=== PATIENT | female | born 1965 | race Caucasian/White ===

== ENCOUNTER 2021-04-02 23:03 | Inpatient (IN) | payer MEDICARE, BC, OTHER ==
[~2021-04-02] VITALS: Ht 165.1 cm; Wt 56.2 kg
[2021-04-02] MEDS ORDERED: LITH600C PO (23:36)
[2021-04-02] MEDS ORDERED: QUET200T PO (23:36)
[2021-04-03 00:11] LABS: HEMATOCRIT 40.3 % (31.2-41.9); MEAN CORPUSCULAR HEMOGLOBIN 31.6 uug (24.7-32.8); MEAN CORPUSCULAR VOLUME 92.1 fL (75.5-95.3); PLATELET COUNT (AUTO) 308 K/uL (179-408)
--- NOTE | 2021-04-03 00:17 | NUR ---
Crisis nurse, Mariana isabel. Dr. Adair spoke with her.
[2021-04-03 00:25] LABS: ETHANOL < 3 MG/DL (0-0)
[2021-04-03 00:41] LABS: *BILIRUBIN,URIN NEGATIVE (NEGATIVE); *COLOR,URINE YELLOW (YELLOW); *KETONES,URINE NEGATIVE (NEGATIVE); *UROBILINOGEN,URINE 0.2 E.U./dl (NORMAL); LEUKOCYTE ESTERASE ,URINE TRACE (NEGATIVE); NITRITE, URINE NEGATIVE (NEGATIVE); PH,URINE 5.5 (5.0-8.0); UGLUCOSE NEGATIVE (NEGATIVE)
[2021-04-03 00:51] LABS: *AMPHETAMINE, URINE NEGATIVE (NEGATIVE); *CANNABINOID, URINE NEGATIVE (NEGATIVE); *COCCAINE, URINE NEGATIVE (NEGATIVE); *OPIATE, URINE NEGATIVE (NEGATIVE); *PHENCYCLIDINE SCREEN,URINE NEGATIVE (NEGATIVE)
[2021-04-03 00:59] LABS: *BLOOD, URINE TRACE (NEGATIVE); *CLARITY,URINE HAZY (CLEAR)
[2021-04-03 01:02] LABS: BACTERIA,URINE MANY /HPF (NONE SEEN); SQUAMOUS EPITHELIAL CELL,UR FEW /HPF (NONE SEEN)
[2021-04-03 01:03] LABS: *URINE HCG, QUAL NEGATIVE (NEGATIVE)
[2021-04-03 01:05] LABS: CARBON DIOXIDE 25 mmol/L (21-32); CHLORIDE 103 mmol/L (98-107); CREATININE 0.6 mg/dL (0.6-1.3); GLUCOSE 129 mg/dL (74-106); POTASSIUM 3.4 mmol/L (3.5-5.1); UREA NITROGEN, BLOOD 20 mg/dL (7-18)
[2021-04-03 01:11] LABS: ALANINE AMINOTRANSFERASE 101 U/L (14-59); ALKALINE PHOSPHATASE 116 U/L (50-136); ASPARTATE AMINOTRANSFERASE 63 U/L (15-37); BILIRUBIN,DIRECT 0.1 mg/dL (0.0-0.2); BILIRUBIN,TOTAL 0.3 mg/dL (0.2-1.0); TOTAL PROTEIN, SERUM 7.4 g/dL (6.4-8.2)
[2021-04-03 01:14] LABS: ACETAMINOPHEN < 2.0 ug/mL (10-30)
[2021-04-03 01:18] LABS: THYROID STIMULATING HORMONE 3.704 mIU/mL (0.358-3.740)
--- NOTE | 2021-04-03 01:19 | NUR ---
Crisis nurseMariana at bedside speaking with pt.
[2021-04-03] MEDS ORDERED: LORAZEPAM 0.5 MG TABLET PO ONE (01:30)
[2021-04-03] MEDS ORDERED: LORAZEPAM 1 MG TABLET ONE (01:40)
--- NOTE | 2021-04-03 06:11 | NUR ---
Called to the charge nurse of mental health. Inquired about giving report on this pt. She states it will have to be after 730 am as they have a general report of the unit at 7 am for the oncoming shift.
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
--- NOTE | 2021-04-03 08:28 | NUR ---
pt transfered to mhu in stable condition.
[2021-04-03] MEDS ORDERED: MAG HYDROX/AL HYDROX/SIMETH 30 ML LIQUID UDC PO PRN ×2 (08:45→10:30)
[2021-04-03] MEDS ORDERED: LORAZEPAM 0.5 MG TABLET PO PRN (08:45)
[2021-04-03] MEDS ORDERED: TEMAZEPAM 7.5 MG CAPSULE PO PRN (08:45)
[2021-04-03] MEDS ORDERED: ACETAMINOPHEN 325 MG TABLET PO PRN (08:45)
[2021-04-03] MEDS ORDERED: BLOOD SUGAR DIAGNOSTIC 1 EACH STRIP VI ONE ×4 (08:45→10:30)
[2021-04-03] MEDS ORDERED: MAGNESIUM HYDROXIDE 30 ML LIQUID UDC PO PRN ×2 (08:45→10:30)
[2021-04-03] MEDS ORDERED: LORAZEPAM 1 MG TABLET PO PRN (10:30)
[2021-04-03] MEDS ORDERED: POTASSIUM CHLORIDE 20 MEQ TAB.PRT.SR PO ONE (11:00)
[2021-04-03] MEDS: QUETIAPINE FUMARATE 100 MG TABLET PO SCH ×3 (11:08→21:49)
[2021-04-03] MEDS: LITHIUM CARBONATE 300 MG CAPSULE PO SCH ×2 (11:08→16:29)
--- NOTE | 2021-04-03 13:00 | NUR ---
report given to charge nurse on duty
[2021-04-03 16:00] VITALS: BP 90/48
[2021-04-03 20:00] VITALS: BP 96/56
--- NOTE | 2021-04-04 06:33 | NUR ---
GPS/NSG Patient first observed asleep in room. Attempted 2100 medication however patient was asleep. Attempted to serve her with advisement, she refused. Stated that the police had all her records. Patient also gave three names as she wanted me to note that there has been a conspiracy to murder her. Also, wanted to state that she did not feel safe across from her apartment. when I asked to clarify, if what she meant was that she was unsafe if she went to the apartment across from her she stated "No, if I went to the apartment across the street, I would be ". Patient has no insight to current situation. Patient is paranoid and tangental. alert and oriented to name, place, disheveled and unkempt. Plan for care in place. To be monitored Q15 minutes. Last observed awake pacing hallway. Small tremor in her hands noted, when i addressed it she said it was from the lithium.
[2021-04-04 07:21] LABS: HEMATOCRIT 41.5 % (31.2-41.9); MEAN CORPUSCULAR VOLUME 92.7 fL (75.5-95.3); PLATELET COUNT (AUTO) 317 K/uL (179-408)
[2021-04-04 07:30] VITALS: BP 103/46
[2021-04-04 07:37] LABS: BILIRUBIN,TOTAL 0.6 mg/dL (0.2-1.0); CREATININE 0.5 mg/dL (0.6-1.3); TOTAL PROTEIN, SERUM 7.3 g/dL (6.4-8.2)
[2021-04-04] MEDS: LITHIUM CARBONATE 300 MG CAPSULE PO SCH ×2 (08:49→17:10)
[2021-04-04] MEDS: QUETIAPINE FUMARATE 100 MG TABLET PO SCH ×2 (08:49→21:39)
[2021-04-04] MEDS: ENSURE ENLIVE (VAN) 240 ML LIQUID PO SCH ×3 (08:50→17:10)
--- NOTE | 2021-04-04 14:03 | NUR ---
SW Admit Source: Pt was voluntarily admitted to [facility] from home. Pt reports she lives alone in an apartment across the street but she will not return back. Pt reported to SW she would like the SW and MD to discharge her to a nursing facility upon discharge. Pt reported to not contact any family as pt is worried for her safety. Further contact will only involve the Public Guardian's Office ([phone]). ALEX will continue to work with pt, conservator, and MD to ensure a safe and proper discharge plan for the pt.
--- NOTE | 2021-04-04 14:03 | NUR ---
ALEX Initial Discharge Note: Pt was voluntarily admitted to [facility] from home. Pt reports she lives alone in an apartment across the [address] but she will not return back. Pt reported to SW she would like the SW and MD to discharge her to a nursing facility upon discharge. Pt reported to not contact any family as pt is worried for her safety. Further contact will only involve the Public Guardian's Office ([phone]). ALEX will continue to work with pt, conservator, and MD to ensure a safe and proper discharge plan for the pt.
--- NOTE | 2021-04-04 16:00 | NUR ---
Gps/Nascar Pit Crew Person- Observed standing still out side her door, appeared to be talking to somebody, when asked who she's talking to, claimed she's just waiting for the Advanced Manufacturing Associate to come out of her office. Encouraged to eat her meals in the dinning room.
[2021-04-04 17:35] VITALS: BP 126/75
[2021-04-04 20:00] VITALS: BP 105/49
[2021-04-04] MEDS: ATORVASTATIN 20 MG TABLET PO SCH ×2 (21:00→21:39)
[2021-04-04] MEDS: ZOLPIDEM 5 MG TABLET PO PRN (23:00)
[2021-04-05 07:45] VITALS: BP 94/50
[2021-04-05] MEDS: LITHIUM CARBONATE 300 MG CAPSULE PO SCH ×2 (08:23→16:14)
[2021-04-05] MEDS: ENSURE ENLIVE (VAN) 240 ML LIQUID PO SCH ×3 (08:23→16:22)
[2021-04-05] MEDS: QUETIAPINE FUMARATE 100 MG TABLET PO SCH ×2 (08:23→20:24)
--- NOTE | 2021-04-05 08:24 | NUR ---
The director of admissions technical inspector checked with the nurse before she came in to the hospital. The patient changed her mind and refused the scan. The patient told the tech that she was perfectly healthy and the exam was not necessary for her. DOUG Novoa noted.
--- NOTE | 2021-04-05 12:28 | NUR ---
Gps/Reserve Operator- Renny Gonzalez came in the front end developer javascript html css wants to visit, informed of the visiting hours as besides informed front end developer javascript html css /security unable to provide any informations , (No informations to be given to 3 people Nadegeyao Ragsdale-Sister, Renny Gonzalez (father), Richy Jasmine -(Cousin)
[2021-04-05 16:25] VITALS: BP 90/49
[2021-04-05 20:00] VITALS: BP 120/76
[2021-04-05] MEDS: ATORVASTATIN 20 MG TABLET PO SCH ×2 (20:26→20:31)
[2021-04-06 07:30] VITALS: BP 91/53
[2021-04-06] MEDS: QUETIAPINE FUMARATE 100 MG TABLET PO SCH ×2 (08:32→21:16)
[2021-04-06] MEDS: ENSURE ENLIVE (VAN) 240 ML LIQUID PO SCH ×3 (08:33→16:55)
[2021-04-06] MEDS: LITHIUM CARBONATE 300 MG CAPSULE PO SCH ×2 (08:33→16:55)
[2021-04-06 16:00] VITALS: BP 104/64
[2021-04-06 19:59] VITALS: BP 111/69
[2021-04-06] MEDS: ATORVASTATIN 20 MG TABLET PO SCH (21:16)
--- NOTE | 2021-04-07 05:27 | NUR ---
Received to care, pleasant upon approach, but appears distracted by internal stimuli, and exhibits rambling thoughts, at times. Refused lipitor at bedtime, but took her psychotropic medications. Requested to speak with patients rights advocate, so she was assisted with the telephone, and she left a message with patients rights office. She also left a message with her father, and eventually went to sleep, after coming to the desk, several times. She has slept around 4 hours. Observed to be talking to self, frequently, during room checks. Will continue to monitor closely.
[2021-04-07 07:51] VITALS: BP 94/46
[2021-04-07] MEDS: QUETIAPINE FUMARATE 100 MG TABLET PO SCH ×2 (08:23→20:09)
[2021-04-07] MEDS: LITHIUM CARBONATE 300 MG CAPSULE PO SCH ×2 (08:23→17:39)
[2021-04-07] MEDS: ENSURE ENLIVE (VAN) 240 ML LIQUID PO SCH ×3 (08:24→17:40)
--- NOTE | 2021-04-07 09:58 | NUR ---
Firearms Report: Painter Spray completed and submitted a [employer] firearms report for 5150 grave disability certifications. A copy of report has been placed in patient chart.
--- NOTE | 2021-04-07 10:39 | NUR ---
ALEX Conservatorship Contact Update: ALEX contacted Public Guardian's Office ([phone]) who stated that the pt was appointed guardianship on March 11, 2017 and it was terminated on December 31, 2020. The pt does not have a public guardian at this time.
--- NOTE | 2021-04-07 14:01 | NUR ---
GPS: Nursing Notes: Mood Disturbance: Depression: Patient is awake and responding to her name, isolative and withdrawn in her room this am, unkempt appearance, depressed mood and blunted affect, gets easily anxious when redirected, needs a lot of prompting to participate in therapeutic groups, poor appetite, low energy level, denies SI/HI, unable to formulate a viable plan for self care, continue with treatment plan.
[2021-04-07 18:00] VITALS: BP 96/52
[2021-04-07 19:55] VITALS: BP 105/51
[2021-04-07] MEDS: ATORVASTATIN 20 MG TABLET PO SCH (20:09)
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
[2021-04-08 08:09] VITALS: BP 105/54
[2021-04-08] MEDS: ENSURE ENLIVE (VAN) 240 ML LIQUID PO SCH ×3 (08:42→17:02)
[2021-04-08] MEDS: LITHIUM CARBONATE 300 MG CAPSULE PO SCH ×2 (08:43→17:02)
[2021-04-08] MEDS: QUETIAPINE FUMARATE 100 MG TABLET PO SCH ×4 (08:56→20:18)
--- NOTE | 2021-04-08 10:00 | NUR ---
patient seen and examined by MD hernández @0800am with and order to increase seroquel dose from 100-150mg. patient made aware of the dosage increase, however refused to take the new medication dosage order 0f 150 mg. patient became somewhat angry and said she didn't agree to the dosage change when spoken to the DR and request to reverse the order to 100mg. informed Md awad of the patient response to dosage change, MD awad orders to switch patient back to 100mg seroquel. patient made aware and verbalized understanding
[2021-04-08 15:55] VITALS: BP 119/69
[2021-04-08 20:09] VITALS: BP 106/57
[2021-04-08] MEDS: ATORVASTATIN 20 MG TABLET PO SCH (20:18)
[2021-04-09] MEDS: ZOLPIDEM 5 MG TABLET PO PRN (01:53)
[2021-04-09] MEDS ORDERED: QUETIAPINE FUMARATE 100 MG TABLET PO SCH (08:45)
[2021-04-09] MEDS: LITHIUM CARBONATE 300 MG CAPSULE PO SCH ×2 (08:51→16:29)
[2021-04-09] MEDS: ENSURE ENLIVE (VAN) 240 ML LIQUID PO SCH ×3 (08:52→16:29)
[2021-04-09] MEDS: QUETIAPINE FUMARATE 100 MG TABLET PO SCH (08:58)
[2021-04-09 16:00] VITALS: BP 103/52
--- NOTE | 2021-04-09 18:43 | NUR ---
Patient remained stable. Complaint with medication. denies SI or harm to others. participated in the group. no distress identified. all needs attended. all due meds given.safety measures maintained. will endorse to the next shift for continuity of care.
[2021-04-09 20:00] VITALS: BP 104/57
[2021-04-09] MEDS: QUETIAPINE FUMARATE 200 MG TABLET PO SCH (20:28)
[2021-04-09] MEDS: ATORVASTATIN 20 MG TABLET PO SCH (20:28)
[2021-04-10 07:30] VITALS: BP 92/52
[2021-04-10] MEDS: LITHIUM CARBONATE 300 MG CAPSULE PO SCH ×2 (08:43→17:20)
[2021-04-10] MEDS: QUETIAPINE FUMARATE 100 MG TABLET PO SCH (08:43)
[2021-04-10] MEDS: ENSURE ENLIVE (VAN) 240 ML LIQUID PO SCH ×3 (08:53→17:20)
--- NOTE | 2021-04-10 16:23 | NUR ---
Gps/Head Of Integrated Media- Has been quiet, calmer, attending her group therapy , continued compliance with her routine am meds. Reviewed safety.
[2021-04-10 17:11] VITALS: BP 106/69
[2021-04-10 20:00] VITALS: BP 116/62
[2021-04-10] MEDS: QUETIAPINE FUMARATE 200 MG TABLET PO SCH (20:18)
[2021-04-10] MEDS: ATORVASTATIN 20 MG TABLET PO SCH (20:18)
[2021-04-10] MEDS: ZOLPIDEM 5 MG TABLET PO PRN (21:23)
[2021-04-11 07:30] VITALS: BP 90/53
[2021-04-11] MEDS: LITHIUM CARBONATE 300 MG CAPSULE PO SCH ×2 (08:56→16:46)
[2021-04-11] MEDS: QUETIAPINE FUMARATE 100 MG TABLET PO SCH (08:56)
[2021-04-11] MEDS: ENSURE ENLIVE (VAN) 240 ML LIQUID PO SCH ×3 (08:57→16:46)
[2021-04-11 15:41] VITALS: BP 99/65
[2021-04-11] MEDS: ATORVASTATIN 20 MG TABLET PO SCH (20:24)
[2021-04-11] MEDS: QUETIAPINE FUMARATE 200 MG TABLET PO SCH (20:25)
[2021-04-11 20:43] VITALS: BP 91/49
[2021-04-11] MEDS: ZOLPIDEM 5 MG TABLET PO PRN (21:53)
[2021-04-12] MEDS: LITHIUM CARBONATE 300 MG CAPSULE PO SCH ×2 (08:21→16:15)
[2021-04-12] MEDS: QUETIAPINE FUMARATE 100 MG TABLET PO SCH (08:21)
[2021-04-12] MEDS: ENSURE ENLIVE (VAN) 240 ML LIQUID PO SCH ×3 (08:22→16:15)
[2021-04-12 08:44] VITALS: BP 88/49
--- NOTE | 2021-04-12 09:03 | NUR ---
orthostatic blood pressure: Lying 92/48 Sitting 104/51 Standing 88/58
--- NOTE | 2021-04-12 10:04 | NUR ---
orthostatic bp recheck: lying 97/42 Sitting 101/56 Standing 102/57
[2021-04-12 10:38] LABS: *BILIRUBIN,URIN NEGATIVE (NEGATIVE); *BLOOD, URINE NEGATIVE (NEGATIVE); *COLOR,URINE YELLOW (YELLOW); *KETONES,URINE NEGATIVE (NEGATIVE); *UROBILINOGEN,URINE 0.2 E.U./dl (NORMAL); LEUKOCYTE ESTERASE ,URINE 1+ (NEGATIVE); NITRITE, URINE NEGATIVE (NEGATIVE); PH,URINE 7.5 (5.0-8.0); UGLUCOSE NEGATIVE (NEGATIVE)
[2021-04-12 14:33] LABS: *CLARITY,URINE SLIGHTLY HAZY (CLEAR); BACTERIA,URINE MODERATE /HPF (NONE SEEN); RBC,URINE 0-3 /HPF (0-3); SQUAMOUS EPITHELIAL CELL,UR MODERATE /HPF (NONE SEEN)
[2021-04-12 15:58] VITALS: BP 108/57
[2021-04-12] MEDS: ATORVASTATIN 20 MG TABLET PO SCH (19:51)
[2021-04-12] MEDS: QUETIAPINE FUMARATE 200 MG TABLET PO SCH (19:51)
[2021-04-12 20:00] VITALS: BP 116/56
[2021-04-12] MEDS: ACETAMINOPHEN 325 MG TABLET PO PRN (20:33)
[2021-04-13] MEDS: LITHIUM CARBONATE 300 MG CAPSULE PO SCH ×2 (08:29→16:53)
[2021-04-13] MEDS: ENSURE ENLIVE (VAN) 240 ML LIQUID PO SCH ×3 (08:29→16:57)
[2021-04-13] MEDS: QUETIAPINE FUMARATE 100 MG TABLET PO SCH (08:29)
[2021-04-13 08:56] VITALS: BP 87/47
[2021-04-13 16:51] VITALS: BP 102/56
[2021-04-13] MEDS: CEphaleXIN 500 MG CAPSULE PO SCH ×2 (16:53→16:57)
--- NOTE | 2021-04-13 17:23 | NUR ---
Received patient sleeping in her room. Pt. is calm, cooperative, but makes inappropriate and sexual comments to staff. Pt. is fixated on homosexuality. Pt. refuses Keflex 500 mg until head of store operations explains in person why she is suppose to take antibiotics. Pt. ambulates independently, steady gait. Pt. is encourage to verbalize concerns. Fall and safety precautions implemented.
[2021-04-13 20:09] VITALS: BP 114/63
[2021-04-13] MEDS: QUETIAPINE FUMARATE 200 MG TABLET PO SCH (20:12)
[2021-04-13] MEDS: ACETAMINOPHEN 325 MG TABLET PO PRN (20:12)
[2021-04-13] MEDS: ATORVASTATIN 20 MG TABLET PO SCH (20:12)
[2021-04-14 07:54] VITALS: BP 95/53
[2021-04-14] MEDS: LITHIUM CARBONATE 300 MG CAPSULE PO SCH (08:47)
[2021-04-14] MEDS: QUETIAPINE FUMARATE 100 MG TABLET PO SCH (08:47)
[2021-04-14] MEDS: ENSURE ENLIVE (VAN) 240 ML LIQUID PO SCH (08:48)
[2021-04-14] MEDS: CEphaleXIN 500 MG CAPSULE PO SCH (08:50)
--- NOTE | 2021-04-14 10:02 | NUR ---
ALEX Discharge Note: Pt will be discharged to [facility] [address], [place] [address] ([phone]) via Ambulance transportation at 12PM. ALEX spoke with admin coordinator, HARMEET at the facility who states they are ready to accept the patient today. Pt is aware and agreeable with discharge plans. Pt does not have a DPOA or conservator and pt requested SW to not speak with her family regarding her discharge plan. Pt is alert and oriented x4, is unable to plan for self-care at this time; however, is willing to accept care at SNF. Pt denies any suicidal or homicidal ideation. Pt will follow-up at the facility with Psychiatrist, Dr. Resendiz and Drill Operator Pneumatic, Dr. Oliver. Pt presents with calm mood and congruent affect.
--- NOTE | 2021-04-14 10:30 | NUR ---
Received patient sleeping in her room. A/O X 3 to person, place. Pt. is cooperative to care, accusatory at times, selective with medications, delusional "You're lying to me". Compliant with medications. Self care. Emotional support provided. Fall and safety precautions implemented.
--- NOTE | 2021-04-14 12:34 | NUR ---
Received orders from Dr. Resendiz to discharge this patient today. [facility] picked patient up at 12:00 am to take her to [facility]. All belongings and valuables were returned to the patient. Pt. denies SI. Denies SOB. Pt. left the floor at 12:05.
== END 2021-04-14 12:00 | DRG 885 ==
LOC: ER 23:05 → GPS 04-03 08:12
PROVIDERS: ADMIT Psychiatry & Neurology Psychiatry; ATTEND Nurse Practitioner Family
DX: F31.64 Bipolar disorder, current episode mixed, severe, with psychotic features (principal); N39.0 Urinary tract infection, site not specified; R45.851 Suicidal ideations; E87.6 Hypokalemia; Z87.891 Personal history of nicotine dependence; Z79.899 Other long term (current) drug therapy; Z73.6 Limitation of activities due to disability; R74.01 Elevation of levels of liver transaminase levels; R73.9 Hyperglycemia, unspecified; Z20.822 Contact with and (suspected) exposure to COVID-19; B96.89 Other specified bacterial agents as the cause of diseases classified elsewhere
CPT/HCPCS: 36415; 70030-TC; 84443; 84481; 84703; 85025; 87086; 93005; 97161; A4663; G0480

== ENCOUNTER 2021-04-22 22:35 | Inpatient (IN) | payer MEDICARE, BC, OTHER ==
[~2021-04-22] VITALS: Ht 165.1 cm; Wt 57.2 kg
[2021-04-22 23:30] LABS: HEMATOCRIT 33.5 % (31.2-41.9); MEAN CORPUSCULAR VOLUME 92.9 fL (75.5-95.3); PLATELET COUNT (AUTO) 302 K/uL (179-408)
[2021-04-22 23:43] LABS: ETHANOL < 3 MG/DL (0-0)
[2021-04-22 23:44] LABS: ALANINE AMINOTRANSFERASE 42 U/L (14-59); ALKALINE PHOSPHATASE 115 U/L (50-136); ASPARTATE AMINOTRANSFERASE 17 U/L (15-37); BILIRUBIN,DIRECT 0.1 mg/dL (0.0-0.2); BILIRUBIN,TOTAL 0.5 mg/dL (0.2-1.0); CARBON DIOXIDE 29 mmol/L (21-32); CHLORIDE 107 mmol/L (98-107); CREATININE 0.6 mg/dL (0.6-1.3); GLUCOSE 129 mg/dL (74-106); POTASSIUM 3.6 mmol/L (3.5-5.1); TOTAL PROTEIN, SERUM 6.5 g/dL (6.4-8.2); UREA NITROGEN, BLOOD 13 mg/dL (7-18)
[2021-04-22 23:45] LABS: ACETAMINOPHEN < 2.0 ug/mL (10-30)
[2021-04-23 00:07] LABS: *BILIRUBIN,URIN NEGATIVE (NEGATIVE); *BLOOD, URINE NEGATIVE (NEGATIVE); *CLARITY,URINE CLEAR (CLEAR); *COLOR,URINE YELLOW (YELLOW); *KETONES,URINE NEGATIVE (NEGATIVE); *UROBILINOGEN,URINE 0.2 E.U./dl (NORMAL); LEUKOCYTE ESTERASE ,URINE 1+ (NEGATIVE); NITRITE, URINE NEGATIVE (NEGATIVE); PH,URINE 6.5 (5.0-8.0); UGLUCOSE NEGATIVE (NEGATIVE)
[2021-04-23 00:13] LABS: *AMPHETAMINE, URINE NEGATIVE (NEGATIVE); *CANNABINOID, URINE NEGATIVE (NEGATIVE); *COCCAINE, URINE NEGATIVE (NEGATIVE); *OPIATE, URINE NEGATIVE (NEGATIVE); *PHENCYCLIDINE SCREEN,URINE NEGATIVE (NEGATIVE)
[2021-04-23 00:58] LABS: BACTERIA,URINE MANY /HPF (NONE SEEN); RBC,URINE 0-3 /HPF (0-3); SQUAMOUS EPITHELIAL CELL,UR FEW /HPF (NONE SEEN); WBC,URINE 0-3 /HPF (0-3)
[2021-04-23] MEDS ORDERED: ACETAMINOPHEN ES 500 MG TABLET PO ONE (01:00)
[2021-04-23 02:15] VITALS: BP 93/54
[2021-04-23] MEDS ORDERED: LORA-259 PO (03:38)
[2021-04-23] MEDS ORDERED: ATOR20TA PO (03:38)
[2021-04-23] MEDS ORDERED: MULT-1119 PO (03:38)
[2021-04-23] MEDS ORDERED: QUET100T PO (03:38)
[2021-04-23] MEDS ORDERED: ZOLP5TAB8 PO (03:38)
[2021-04-23] MEDS ORDERED: QUET200T PO (03:38)
[2021-04-23] MEDS ORDERED: LITH300C2 PO (03:38)
[2021-04-23] MEDS ORDERED: MAG HYDROX/AL HYDROX/SIMETH 30 ML LIQUID UDC PO PRN (04:00)
[2021-04-23] MEDS ORDERED: ZOLPIDEM 5 MG TABLET PO PRN (04:00)
[2021-04-23] MEDS ORDERED: MAGNESIUM HYDROXIDE 30 ML LIQUID UDC PO PRN (04:00)
[2021-04-23] MEDS: CEphaleXIN 500 MG CAPSULE PO SCH ×3 (15:00→20:26)
[2021-04-23 16:00] VITALS: BP 111/58
[2021-04-23 20:00] VITALS: BP 106/57
[2021-04-23] MEDS: ATORVASTATIN 20 MG TABLET PO SCH (20:19)
[2021-04-23] MEDS: QUETIAPINE FUMARATE 200 MG TABLET PO SCH (20:20)
[2021-04-23] MEDS: LITHIUM CARBONATE 300 MG CAPSULE PO SCH (20:29)
[2021-04-24] MEDS: CEphaleXIN 500 MG CAPSULE PO SCH ×4 (06:00→23:00)
[2021-04-24 07:30] VITALS: BP 93/49
[2021-04-24] MEDS ORDERED: OLANZAPINE 10 MG VIAL IM ONE (08:30)
[2021-04-24] MEDS: LITHIUM CARBONATE 300 MG CAPSULE PO SCH ×2 (08:58→20:19)
[2021-04-24] MEDS: MULTIVITAMINS,THERAPEUTIC TABLET PO SCH (08:58)
[2021-04-24] MEDS: QUETIAPINE FUMARATE 100 MG TABLET PO SCH (08:58)
[2021-04-24] MEDS ORDERED: Medication Not On Formulary EA (Multivitamin (Multi Vitamin Daily) 1 TAB) PO SCH (09:00)
[2021-04-24 16:26] VITALS: BP 92/48
[2021-04-24 20:00] VITALS: BP 90/52
[2021-04-24] MEDS: ATORVASTATIN 20 MG TABLET PO SCH (20:19)
[2021-04-24] MEDS: QUETIAPINE FUMARATE 200 MG TABLET PO SCH (20:19)
[2021-04-25] MEDS: CEphaleXIN 500 MG CAPSULE PO SCH ×4 (06:00→22:00)
[2021-04-25 07:34] VITALS: BP 116/62
[2021-04-25] MEDS: MULTIVITAMINS,THERAPEUTIC TABLET PO SCH (08:43)
[2021-04-25] MEDS: QUETIAPINE FUMARATE 100 MG TABLET PO SCH (08:43)
[2021-04-25] MEDS: LITHIUM CARBONATE 300 MG CAPSULE PO SCH ×2 (08:43→20:00)
[2021-04-25] MEDS ORDERED: OLANZAPINE 10 MG VIAL IM ONE (13:45)
[2021-04-25] MEDS ORDERED: diphenhydrAMINE 25 MG/10 ML UDC PO PRN (14:15)
[2021-04-25] MEDS: diphenhydrAMINE 25 MG CAP PO PRN (16:20)
[2021-04-25 16:35] VITALS: BP 122/69
[2021-04-25] MEDS: QUETIAPINE FUMARATE 200 MG TABLET PO SCH (20:00)
[2021-04-25] MEDS: ATORVASTATIN 20 MG TABLET PO SCH (20:00)
[2021-04-25 20:13] VITALS: BP 120/45
[2021-04-26] MEDS: CEphaleXIN 500 MG CAPSULE PO SCH ×3 (06:00→22:00)
[2021-04-26] MEDS: QUETIAPINE FUMARATE 100 MG TABLET PO SCH (08:10)
[2021-04-26] MEDS: LITHIUM CARBONATE 300 MG CAPSULE PO SCH ×2 (08:10→20:02)
[2021-04-26] MEDS: MULTIVITAMINS,THERAPEUTIC TABLET PO SCH (08:10)
[2021-04-26 09:15] VITALS: BP 116/70
[2021-04-26 16:50] VITALS: BP 110/52
[2021-04-26 20:00] VITALS: BP 128/63
[2021-04-26] MEDS: QUETIAPINE FUMARATE 200 MG TABLET PO SCH (20:02)
[2021-04-26] MEDS: ATORVASTATIN 20 MG TABLET PO SCH (20:02)
[2021-04-27] MEDS: CEphaleXIN 500 MG CAPSULE PO SCH ×2 (06:00→14:00)
[2021-04-27 07:46] VITALS: BP 112/66
[2021-04-27] MEDS: QUETIAPINE FUMARATE 100 MG TABLET PO SCH (08:11)
[2021-04-27] MEDS: LITHIUM CARBONATE 300 MG CAPSULE PO SCH ×2 (08:11→20:18)
[2021-04-27] MEDS: MULTIVITAMINS,THERAPEUTIC TABLET PO SCH (08:11)
[2021-04-27 16:16] VITALS: BP 113/63
[2021-04-27 20:00] VITALS: BP 127/71
[2021-04-27] MEDS: ATORVASTATIN 20 MG TABLET PO SCH (20:18)
[2021-04-27] MEDS: QUETIAPINE FUMARATE 200 MG TABLET PO SCH (20:18)
[2021-04-28 07:41] VITALS: BP 114/67
[2021-04-28] MEDS: QUETIAPINE FUMARATE 100 MG TABLET PO SCH (08:01)
[2021-04-28] MEDS: LITHIUM CARBONATE 300 MG CAPSULE PO SCH ×2 (08:01→21:00)
[2021-04-28] MEDS: MULTIVITAMINS,THERAPEUTIC TABLET PO SCH (08:01)
[2021-04-28 16:16] VITALS: BP 112/62
[2021-04-28] MEDS ORDERED: QUETIAPINE FUMARATE 200 MG TABLET PO SCH (21:00)
[2021-04-28] MEDS: ATORVASTATIN 20 MG TABLET PO SCH (21:00)
[2021-04-29] MEDS ORDERED: OLANZAPINE 10 MG VIAL IM ONE (03:00)
[2021-04-29] MEDS: MULTIVITAMINS,THERAPEUTIC TABLET PO SCH (08:15)
[2021-04-29] MEDS: LITHIUM CARBONATE 300 MG CAPSULE PO SCH ×3 (08:15→21:16)
[2021-04-29] MEDS: QUETIAPINE FUMARATE 100 MG TABLET PO SCH ×3 (08:15→21:17)
[2021-04-29] MEDS: ACETAMINOPHEN 325 MG TABLET PO PRN (08:54)
[2021-04-29 09:24] VITALS: BP 150/80
[2021-04-29] MEDS ORDERED: OLANZAPINE 5 MG TABLET PO PRN (11:00)
[2021-04-29] MEDS: OLANZAPINE 5 MG TABLET PO SCH ×2 (13:00→13:17)
[2021-04-29 16:00] VITALS: BP 126/74
[2021-04-29 19:59] VITALS: BP 136/76
[2021-04-29] MEDS: ATORVASTATIN 20 MG TABLET PO SCH ×2 (21:00→21:16)
[2021-04-30 07:30] VITALS: BP 114/64
[2021-04-30] MEDS: QUETIAPINE FUMARATE 100 MG TABLET PO SCH (08:45)
[2021-04-30] MEDS: LITHIUM CARBONATE 300 MG CAPSULE PO SCH ×2 (08:46→20:57)
[2021-04-30] MEDS: MULTIVITAMINS,THERAPEUTIC TABLET PO SCH (08:46)
[2021-04-30] MEDS: OLANZAPINE 5 MG TABLET PO SCH ×2 (12:43→17:35)
[2021-04-30] MEDS ORDERED: OLANZAPINE 10 MG VIAL IM ONE (15:00)
[2021-04-30] MEDS ORDERED: LORAZEPAM 2 MG/1 ML VIAL IM ONE (17:45)
[2021-04-30] MEDS ORDERED: BENZTROPINE MESYLATE 2 MG/2 ML AMPUL IM ONE (18:00)
[2021-04-30] MEDS ORDERED: HALOPERIDOL LACTATE 5 MG/1 ML VIAL IM ONE (18:00)
[2021-04-30 20:56] VITALS: BP 102/53
[2021-04-30] MEDS: ATORVASTATIN 20 MG TABLET PO SCH (20:57)
[2021-05-01] MEDS: LITHIUM CARBONATE 300 MG CAPSULE PO SCH ×2 (11:00→20:13)
[2021-05-01] MEDS: MULTIVITAMINS,THERAPEUTIC TABLET PO SCH (11:00)
[2021-05-01] MEDS: QUETIAPINE FUMARATE 100 MG TABLET PO SCH (11:00)
[2021-05-01] MEDS: OLANZAPINE 5 MG TABLET PO SCH ×4 (13:02→23:00)
[2021-05-01] MEDS: diphenhydrAMINE 25 MG CAP PO PRN (17:18)
[2021-05-01 20:00] VITALS: BP 100/58
[2021-05-01] MEDS: ATORVASTATIN 20 MG TABLET PO SCH (20:13)
[2021-05-01] MEDS: ACETAMINOPHEN 325 MG TABLET PO PRN (20:13)
[2021-05-02] MEDS: diphenhydrAMINE 25 MG CAP PO PRN ×3 (01:24→18:29)
[2021-05-02] MEDS: ACETAMINOPHEN 325 MG TABLET PO PRN ×2 (02:37→18:59)
[2021-05-02] MEDS: HYDROXYZINE PAMOATE 25 MG CAPSULE PO PRN (03:08)
[2021-05-02 07:46] VITALS: BP 128/53
[2021-05-02 07:48] LABS: HEMATOCRIT 35.3 % (31.2-41.9); MEAN CORPUSCULAR HEMOGLOBIN 31.6 uug (24.7-32.8); MEAN CORPUSCULAR VOLUME 93.7 fL (75.5-95.3); PLATELET COUNT (AUTO) 249 K/uL (179-408)
[2021-05-02 07:58] LABS: BILIRUBIN,TOTAL 0.3 mg/dL (0.2-1.0); CREATININE 0.5 mg/dL (0.6-1.3); POTASSIUM 4.3 mmol/L (3.5-5.1); TOTAL PROTEIN, SERUM 6.2 g/dL (6.4-8.2)
[2021-05-02] MEDS: LITHIUM CARBONATE 300 MG CAPSULE PO SCH ×2 (08:49→20:20)
[2021-05-02] MEDS: MULTIVITAMINS,THERAPEUTIC TABLET PO SCH (08:50)
[2021-05-02] MEDS: OLANZAPINE 5 MG TABLET PO SCH ×3 (12:47→21:02)
[2021-05-02 17:27] VITALS: BP 118/51
[2021-05-02] MEDS: ATORVASTATIN 20 MG TABLET PO SCH (20:20)
[2021-05-02 20:21] VITALS: BP 107/50
[2021-05-03] MEDS: HYDROXYZINE PAMOATE 25 MG CAPSULE PO PRN ×2 (01:26→21:46)
[2021-05-03] MEDS: MULTIVITAMINS,THERAPEUTIC TABLET PO SCH (08:26)
[2021-05-03] MEDS: LITHIUM CARBONATE 300 MG CAPSULE PO SCH ×2 (08:26→20:07)
[2021-05-03] MEDS: OLANZAPINE 5 MG TABLET PO SCH ×3 (12:25→20:07)
[2021-05-03] MEDS: diphenhydrAMINE 25 MG CAP PO PRN (12:42)
[2021-05-03 17:09] VITALS: BP 110/69
[2021-05-03] MEDS: ACETAMINOPHEN 325 MG TABLET PO PRN (18:48)
[2021-05-03 20:00] VITALS: BP 102/60
[2021-05-03] MEDS: ATORVASTATIN 20 MG TABLET PO SCH (20:07)
[2021-05-04 08:11] VITALS: BP 107/57
[2021-05-04] MEDS: LITHIUM CARBONATE 300 MG CAPSULE PO SCH ×2 (08:35→20:14)
[2021-05-04] MEDS: MULTIVITAMINS,THERAPEUTIC TABLET PO SCH (08:35)
[2021-05-04] MEDS: OLANZAPINE 5 MG TABLET PO SCH ×3 (12:32→20:14)
[2021-05-04] MEDS: diphenhydrAMINE 25 MG CAP PO PRN ×2 (12:41→20:30)
[2021-05-04 20:11] VITALS: BP 108/53
[2021-05-04] MEDS: ATORVASTATIN 20 MG TABLET PO SCH (20:14)
[2021-05-04] MEDS: HYDROXYZINE PAMOATE 25 MG CAPSULE PO PRN (21:43)
[2021-05-04] MEDS: ACETAMINOPHEN 325 MG TABLET PO PRN (21:47)
[2021-05-05 08:02] VITALS: BP 99/61
[2021-05-05] MEDS: HYDROXYZINE PAMOATE 25 MG CAPSULE PO PRN ×3 (09:03→16:45)
[2021-05-05] MEDS: MULTIVITAMINS,THERAPEUTIC TABLET PO SCH (09:13)
[2021-05-05] MEDS: LITHIUM CARBONATE 300 MG CAPSULE PO SCH ×3 (09:13→20:42)
[2021-05-05] MEDS: OLANZAPINE 5 MG TABLET PO SCH ×3 (12:37→20:41)
[2021-05-05] MEDS: diphenhydrAMINE 25 MG CAP PO PRN (16:04)
[2021-05-05 16:09] VITALS: BP 108/64
[2021-05-05] MEDS: ACETAMINOPHEN 325 MG TABLET PO PRN (18:13)
[2021-05-05 20:15] VITALS: BP 107/51
[2021-05-05] MEDS: ATORVASTATIN 20 MG TABLET PO SCH (20:41)
[2021-05-06] MEDS: diphenhydrAMINE 25 MG CAP PO PRN ×2 (00:45→13:35)
[2021-05-06] MEDS: HYDROXYZINE PAMOATE 25 MG CAPSULE PO PRN ×4 (00:51→16:52)
[2021-05-06] MEDS: ACETAMINOPHEN 325 MG TABLET PO PRN (00:54)
[2021-05-06 08:00] VITALS: BP 110/55
[2021-05-06] MEDS: LITHIUM CARBONATE 300 MG CAPSULE PO SCH ×3 (08:51→21:40)
[2021-05-06] MEDS: MULTIVITAMINS,THERAPEUTIC TABLET PO SCH (08:51)
[2021-05-06] MEDS: OLANZAPINE 5 MG TABLET PO SCH ×3 (12:39→21:56)
[2021-05-06 16:46] VITALS: BP 122/42
[2021-05-06 20:14] VITALS: BP 99/51
[2021-05-06] MEDS: ATORVASTATIN 20 MG TABLET PO SCH (21:40)
[2021-05-07 07:30] VITALS: BP 97/54
[2021-05-07] MEDS: LITHIUM CARBONATE 300 MG CAPSULE PO SCH ×3 (09:24→20:14)
[2021-05-07] MEDS: MULTIVITAMINS,THERAPEUTIC TABLET PO SCH (09:24)
[2021-05-07] MEDS: OLANZAPINE 5 MG TABLET PO SCH ×3 (12:35→20:15)
[2021-05-07 16:00] VITALS: BP 103/39
[2021-05-07 20:00] VITALS: BP 120/53
[2021-05-07] MEDS: diphenhydrAMINE 25 MG CAP PO PRN (20:14)
[2021-05-07] MEDS: ATORVASTATIN 20 MG TABLET PO SCH (20:14)
[2021-05-07] MEDS: HYDROXYZINE PAMOATE 25 MG CAPSULE PO PRN (22:49)
[2021-05-08 07:30] VITALS: BP 112/57
[2021-05-08] MEDS: LITHIUM CARBONATE 300 MG CAPSULE PO SCH (08:50)
[2021-05-08] MEDS: MULTIVITAMINS,THERAPEUTIC TABLET PO SCH (08:50)
== END 2021-05-08 11:04 | DRG 885 ==
LOC: ER 22:40 → GPS 04-23 01:45
PROVIDERS: ADMIT Psychiatry & Neurology Psychosomatic Medicine; ATTEND Nurse Practitioner Acute Care
DX: F25.0 Schizoaffective disorder, bipolar type (principal); E78.5 Hyperlipidemia, unspecified; F60.3 Borderline personality disorder; Z79.899 Other long term (current) drug therapy; Z88.8 Allergy status to other drugs, medicaments and biological substances; Z91.14 Patient's other noncompliance with medication regimen
CPT/HCPCS: 36415; 70030-TC; 85025; 87086; 93005; 97161; A4663; A9150; G0480; J0515; J1630; J2060; J2358; Q0163

== ENCOUNTER 2021-05-08 18:43 | Emergency (ER) | payer MEDICARE, OTHER ==
[~2021-05-08] VITALS: Ht 165.1 cm; Wt 59.0 kg
[~2021-05-08 18:43] MED LIST: ATOR20TA PO; MULT-1119 PO
--- NOTE | 2021-05-09 00:55 | NUR ---
Patient discharged to home in stable condition. Written and verbal after care instructions given. Patient verbalizes understanding of instructions. Stressed follow up or return to ER for worsening s/s. pt ambulated with steady gait. denies pain. no sob. no chest pain. no changes in LOC.
--- NOTE | 2021-05-09 01:01 | NUR ---
Patient waiting in the waiting room for SW in the AM.
[2021-05-09 01:30] VITALS: BP 140/35
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
== END 2021-05-09 01:30 | disposition home or self-care (01) ==
LOC: ER 21:32
DX: F31.9 Bipolar disorder, unspecified (principal); R00.0 Tachycardia, unspecified; F20.9 Schizophrenia, unspecified; Z79.899 Other long term (current) drug therapy
CPT/HCPCS: A4663